=== PATIENT | female | born 1970 | race Caucasian/White ===

== ENCOUNTER 2019-05-24 07:20 | Day surgery (SDC) | payer BC ==
[2019-05-19 15:23] LABS: BASOPHILS % (AUTO) 0.3 % (0-1); EOSINOPHILS % (AUTO) 0.5 % (0-6); LYMPHOCYTES # (AUTO) 2.2 X10'3 (1.1-4.8); LYMPHOCYTES % (AUTO) 23.9 % (21-51); MEAN CORPUSCULAR HEMOGLOBIN 31.4 PG (27.0-31.0); MEAN CORPUSCULAR HGB CONC 33.4 g/dL (33.0-36.5); MONOCYTES # (AUTO) 0.6 X10'3 (0-0.9); MONOCYTES % (AUTO) 6.3 % (2-12); NEUTROPHILS # (AUTO) 6.3 X10'3 (1.8-7.7); PRE OP HEMATOCRIT 42.9 % (35.0-45.0); PRE OP HEMOGLOBIN 14.3 g/dL (12.0-16.0); PRE OP PLATELET COUNT 318 X10'3 (140-440); RED BLOOD COUNT 4.57 X10'6 (4.20-5.60); RED CELL DISTRIBUTION WIDTH 13.2 % (11.5-14.5)
[2019-05-19 15:24] LABS: CLARITY,URINE CLEAR (Clear); COLOR,URINE STRAW (Yellow); GLUCOSE, URINE NEGATIVE (Neg); KETONES,URINE NEGATIVE (Neg); LEUKOCYTE ESTERASE ,URINE NEGATIVE (Neg); NITRITES, URINE NEGATIVE (Neg); OCCULT BLOOD,URINE TRACE-INTACT (Neg); PH,URINE 6.5 (4.8-8.0); PROTEIN,URINE NEGATIVE (Neg); UROBILINOGEN,URINE 0.2 E.U/dL (0.2-1.0)
[2019-05-19 15:26] LABS: UA COLLECTION TYPE CLN CATCH MIDSTREAM
[2019-05-19 15:36] LABS: ALBUMIN 4.2 G/DL (3.4-5.0); ALBUMIN/GLOBULIN RATIO 1.1 (1.1-1.5); ALKALINE PHOSPHATASE 62 IU/L (46-116); BLOOD UREA NITROGEN 14 MG/DL (7-18); BUN/CREATININE RATIO 16.9 (6.6-38.0); CALCIUM 8.9 MG/DL (8.5-10.1); CHLORIDE 104 MMOL/L (99-107); CREATININE 0.83 MG/DL (0.40-0.90); PRE OP ALT 21 U/L (30-65); PRE OP ANION GAP 7 (8-16); PRE OP AST 18 U/L (10-37); PRE OP BILIRUB, TOTAL 0.2 MG/DL (0.0-1.0); PRE OP GLUCOSE 91 MG/DL (70-104); PRE OP POTASSIUM 3.7 MMOL/L (3.4-5.1); PRE OP SODIUM 141 MMOL/L (135-145); TOTAL PROTEIN 8.1 G/DL (6.4-8.2); eGFR 74 ML/MIN
[2019-05-19 15:41] LABS: SQUAMOUS EPITHELIAL CELL,UR FEW /LPF (FEW)
[2019-05-19 15:42] LABS: BACTERIA,URINE FEW /HPF (Neg); RBC,URINE 0-2 /HPF (0-2); WBC,URINE 0-4 /HPF (0-4)
[2019-05-24] VITALS (9 sets, daily range): BP systolic 90–124; BP diastolic 50–82
[~2019-05-24] VITALS: Ht 170.2 cm; Wt 74.7 kg
[~2019-05-24 07:20] MED LIST: LEVO25TA2 PO; LORA0.5T PO; SPIR50TA5 PO; SUMA50TA PO; cefazolin/dext.iso 2gm/100 ML IV ONE; famotidine 20mg tablet PO ONE; ringers solution, lacted 1,000 ML IV SCH
[2019-05-24] MEDS ORDERED: BUPIVAcaine/PF 2.5 mg/ml (0.25%) 30ml vial ONE (10:46)
[2019-05-24] MEDS ORDERED: methylene blue (5mg/ml) 50mg/10ml ampul IV ONE (10:46)
[2019-05-24] MEDS ORDERED: BUPIVACAINE liposomal/PF 13.3 MG/ML vial IM ONE (10:47)
[2019-05-24] MEDS ORDERED: midazolam 2 mg/2 ml injection ONE (11:05)
[2019-05-24] MEDS ORDERED: fentaNYL /PF 50mcg/ml 5ml ampule ONE (11:05)
[2019-05-24] MEDS ORDERED: ringers solution, lacted 1,000 ML IV SCH (11:37)
[2019-05-24] MEDS ORDERED: proCHLORperazine 10 MG/2 ml inj IV PRN (11:40)
[2019-05-24] MEDS ORDERED: ondansetron/PF 4mg/2ml inj IV PRN (11:40)
[2019-05-24] MEDS ORDERED: morphine 4 MG/ML inj SYRINge IV PRN ×2 (11:40)
[2019-05-24] MEDS ORDERED: meperidine/PF 25mg/ml syringe IV PRN ×2 (11:40)
[2019-05-24] MEDS ORDERED: sevoflurane 250ml liquid IH ONE (11:50)
--- NOTE | 2019-05-24 12:10 | NUR ---
ADMITTED TO PACU FROM OR ACCOMPANIED BY ANESTHESIA. INTIAL PHYSICAL ASSESSMENT DONE AND RECORDED. AWAKE AND RESPONSE ON ARRIVE YO PACU, REPORT RECEIVED FROM ANESTHESIA.
[2019-05-24] MEDS: meperidine/PF 25mg/ml syringe IV PRN ×2 (12:25→12:36)
[2019-05-24] MEDS ORDERED: dexamethasone sod phosphate 4mg/ml inj. ONE (12:59)
[2019-05-24] MEDS ORDERED: propofol inj 20 ML IV ONE (12:59)
[2019-05-24] MEDS ORDERED: LIDOcaine 2% (20mg/ml) 5ml vial ONE (12:59)
[2019-05-24] MEDS ORDERED: ondansetron/PF 4mg/2ml inj ONE (12:59)
--- NOTE | 2019-05-24 13:30 | NUR ---
Discharge criteria met, discharge instructions given, demonstrates verbal understanding. Discharged home in good condition.
== END 2019-05-24 13:30 | disposition home or self-care (01) ==
LOC: PAS 07:20
PROVIDERS: ATTEND Surgery
DX: K64.2 Third degree hemorrhoids (principal); F41.9 Anxiety disorder, unspecified; G43.909 Migraine, unspecified, not intractable, without status migrainosus; E03.9 Hypothyroidism, unspecified; Z79.899 Other long term (current) drug therapy; Z90.710 Acquired absence of both cervix and uterus; Z98.890 Other specified postprocedural states
CPT/HCPCS: 36415; 45330; 46255; 80053; 81001; 82948; 85025; A6224; C9290; J1100; J2001; J2175; J2250; J2405; J2704; J3010; J3490; Q9968; A4215; A4618; A6449; A7000; J7120